=== PATIENT | male | born 1975 ===

== ENCOUNTER 2018-07-27 09:09 | Emergency (ER) | payer OTHER ==
--- NOTE | 2018-07-27 09:52 | ED PDOC ---
Upper Extremity Pain/Injury Time Seen by Provider: 07/27/18 09:22 Chief Complaint (Nursing): Weakness/Neurological Deficit Chief Complaint (Provider): Left shoulder pain History Per: Patient History/Exam Limitations: no limitations Onset/Duration Of Symptoms: Days (x 2 weeks) Current Symptoms Are (Timing): Still Present Quality: "Pain" Additional Complaint(s): 43 year old male presents to the ED with left posterior shoulder and upper arm pain for the last 2 weeks. Patient reports that pain is worse with movement and when he lays down to sleep. He took Motrin and applied pain patches on his arm with minimal relief. Denies trauma, weakness, numbness (contrary to triage), shortness of breath, chest pain, palpitations and paresthesia. PMD: none provided Past Medical History Reviewed: Historical Data, Nursing Documentation, Vital Signs - Medical History PMH: No Chronic Diseases - Surgical History Other surgeries: pin placed in right pelvis - Family History Family History: States: Unknown Family Hx - Home Medications Home Medications: Ambulatory Orders Medication Instructions Recorded Cyclobenzaprine HCl [Flexeril] 10 mg PO BID PRN #12 tab 09/06/15 Ibuprofen [Motrin Tab] 800 mg PO Q6H PRN #20 tab 09/06/15 Cyclobenzaprine [Cyclobenzaprine 10 mg PO TID PRN #15 tab 07/27/18 HCl] Naproxen [Naprosyn] 500 mg PO BID PRN #15 tablet 07/27/18 - Allergies Allergies/Adverse Reactions: Allergies Allergy/AdvReac Type Severity Reaction Status Date / Time No Known Allergies Allergy Verified 09/06/15 12:38 Review of Systems ROS Statement: Except As Marked, All Systems Reviewed And Found Negative Constitutional: Negative for: Weakness Cardiovascular: Negative for: Chest Pain, Palpitations Respiratory: Negative for: Shortness of Breath Musculoskeletal: Positive for: Shoulder Pain (left posterior shoulder and upper arm pain) Physical Exam - Reviewed Nursing Documentation Reviewed: Yes Vital Signs Reviewed: Yes - Physical Exam Appears: Positive for: Non-toxic, No Acute Distress Head Exam: Positive for: ATRAUMATIC, NORMAL INSPECTION, NORMOCEPHALIC Skin: Positive for: Normal Color, Warm, Dry Eye Exam: Positive for: EOMI, Normal appearance, PERRL Extremity: Positive for: Tenderness (tenderness in posterior left scapula, left posterior shoudler and along trapezius muscle ). Negative for: Deformity Neurologic/Psych: Positive for: Alert, Oriented. Negative for: Motor/Sensory Deficits - ECG Interpretation Of ECG: NSR @ 65, no ST-T changes. - Progress Re-evaluation Time: 13:30 Condition: Improved Medical Decision Making Medical Decision Makin:52 Impression: musculoskeletal pain Initial Plan: --Flexeril 10 mg PO --Motrin 600 mg PO --Glucose POC --EKG --Right shoulder x-ray 12:42 Right shoulder x-ray FINDINGS: BONES: Normal. No fracture. JOINTS: Normal. Glenohumeral and acromioclavicular joints preserved. No osteoarthritis. SOFT TISSUES: Normal. OTHER FINDINGS: None. IMPRESSION: Normal radiographs of the left shoulder. Scribe Attestation: Documented by Roxana Kaufman acting as a scribe for Aimee Velasquez MD Provider Scribe Attestation: All medical record entries made by the Scribe were at my direction and personally dictated by me. I have reviewed the chart and agree that the record accurately reflects my personal performance of the history, physical exam, medical decision making, and the department course for this patient. I have also personally directed, reviewed, and agree with the discharge instructions and disposition Disposition - Clinical Impression Clinical Impression: Musculoskeletal pain - Disposition Referrals: Faye Villalobos [Family Provider] - Disposition Time: 13:48 Condition: IMPROVED Prescriptions: Cyclobenzaprine [Cyclobenzaprine HCl] 10 mg PO TID PRN #15 tab PRN Reason: Pain Naproxen [Naprosyn] 500 mg PO BID PRN #15 tablet PRN Reason: Pain, Moderate (4-7) Instructions: Muscle and Bone Pain (DC) Forms: Guided Interventions (Ugandan)
--- NOTE | 2018-07-27 12:46 | RAD ---
Date of service: 07/27/2018 PROCEDURE: Radiographs of the Left Shoulder HISTORY: Posterior pain COMPARISON: No prior. FINDINGS: BONES: Normal. No fracture. JOINTS: Normal. Glenohumeral and acromioclavicular joints preserved. No osteoarthritis. SOFT TISSUES: Normal. OTHER FINDINGS: None. IMPRESSION: Normal radiographs of the left shoulder.
[2018-07-27 13:41] VITALS: RESP 18; O2SAT 100
--- NOTE | 2018-07-27 13:55 | CARD ---
APPROVED REPORT Date of service: 07/27/2018 EKG Measurement Heart [id number] <Conclusion> Normal sinus rhythm Normal ECG
[2018-07-27 14:23] VITALS: BP 129/69; PULSE 81
== END 2018-07-27 14:23 | disposition home or self-care (01) ==
LOC: H.ER 09:09
DX: M25.512 Pain in left shoulder (principal)